=== PATIENT | female | born 1945 | race Two or more races ===

== ENCOUNTER 2017-02-14 09:53 | Outpatient (CLI) | payer OTHER ==
[~2017-02-14 09:53] MED LIST: BICARSIM FORTE125 MG PO; DOLOGESIC CAPLE1 TAB PO; KETO10TA2 PO; PROVENTIL3 ML/2.5 M IH; ZITHROMAX500 MG PO; ZYNCOF 20-400120 ML PO
== END 2017-02-14 10:03 | disposition home or self-care (01) ==
LOC: TOM 09:53
DX: R10.13 Epigastric pain (principal)
CPT/HCPCS: 74177; Q9965

== ENCOUNTER 2019-04-12 12:26 | Emergency (ER) | payer OTHER ==
[~2019-04-12] VITALS: Ht 157.5 cm; Wt 74.8 kg
[2019-04-12] MEDS ORDERED: PROBIOTIC1 EAC2 (12:58)
== END 2019-04-12 14:29 | disposition home or self-care (01) ==
LOC: ER 12:26
DX: R00.2 Palpitations (principal); F06.4 Anxiety disorder due to known physiological condition